=== PATIENT | male | born 1960 | race Caucasian/White ===

== ENCOUNTER 2023-03-10 10:40 | Outpatient (OUT) | payer BC, SELFPAY ==
--- NOTE | 2023-03-10 | XR_ITS ---
The [address] [address] Patient Name: RBOERT GODINEZ MRN: [id number] date: 1960 Sex: M Assigned Patient Location: RAD Current Patient Location: [facility] Accession/Order Number: [id number] Exam Date: 03/10/2023 11:02 Report Date: 03/10/2023 11:14 At the request of: BRUCE LOWE Procedure: XR chest 2V EXAM: XR chest 2V HISTORY: Cough COMPARISON: None. TECHNIQUE: PA and lateral views of the chest. FINDINGS: The cardiomediastinal silhouette is normal. No focal consolidation is identified. There is no pneumothorax. No pleural effusion is noted. The osseous structures are intact. XR/XR chest 2V IMPRESSION: No acute cardiopulmonary process. Electronically authenticated by: CHEKO REYES Date: 03/10/2023 11:14
== END 2023-03-10 10:41 | disposition home or self-care (01) ==
PROVIDERS: PCP Family Medicine; Visit Provider Family Medicine
DX: R05.8 Other specified cough (principal)
CPT/HCPCS: 71046

== ENCOUNTER 2023-09-19 01:28 | Emergency (ER) | payer BC, SELFPAY ==
[2023-09-19 01:32] VITALS: BP 147/103; PULSE 83; TEMP 36.6; O2SAT 98; BMI 27.3
[2023-09-19 01:33] VITALS: BP 141/103; O2SAT 98
[2023-09-19 01:40] VITALS: PULSE 78; O2SAT 98
--- NOTE | 2023-09-19 01:42 | ECG_ITS ---
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
[2023-09-19 01:44] VITALS: PULSE 78
--- NOTE | 2023-09-19 01:44 | ED_ITS ---
HPI - Anxiety General Chief Complaint: Arrhythmia/Palpitations Stated Complaint: RACING HEART Time Seen by Provider: 09/19/23 01:33 Source: patient Mode of arrival: walk-in Limitations: no limitations History of Present Illness HPI narrative: 63-year-old male presents for anxiety. He has been having anxiety issues over the past year. He took a Xanax this morning and then 1 tonight. He woke up and had palpitations. No fever or vomiting. Related Data Home Medications ?Medication ?Instructions ?Recorded ?Confirmed alprazolam 0.25 mg tablet 0.25 mg PO BID 09/19/23 09/19/23 atorvastatin 40 mg tablet 40 mg PO DAILY 09/19/23 09/19/23 hydrochlorothiazide 25 mg tablet 25 mg PO Q12H 09/19/23 09/19/23 losartan 25 mg tablet 25 mg PO DAILY 09/19/23 09/19/23 Previous Rx's ?Medication ?Instructions ?Recorded hydroxyzine HCl 25 mg tablet 25 mg PO Q8H PRN anxiety #20 tabs 09/19/23 Allergies Allergy/AdvReac Type Severity Reaction Status Date / Time No Known Drug Allergies Allergy Verified 09/19/23 01:31 Review of Systems ROS Narrative A ten point review of systems is negative except as noted above. Exam Narrative Exam Narrative: Nurses note and vital signs reviewed and patient is not hypoxic. General: The patient appears well and in no apparent distress. Patient is resting comfortably on cart. Skin: Warm, dry, no pallor noted. There is no rash noted. Head: Normocephalic, atraumatic Eye: Normal conjunctiva, no drainage Ears, Nose, Mouth, and Throat: oral mucosa is moist. Nares patent. Cardiovascular: Regular Rate and Rhythm, not tachycardia Respiratory: Patient is in no distress, no accessory muscle use, lungs are clear to auscultation, no wheezing, rales or rhonchi Back: non-tender GI: Soft and nontender Musculoskeletal: The patient has no evidence of calf tenderness, no pitting edema, symmetrical pulses noted bilaterally Neurological: A&O, normal speech Psychiatric: Cooperative Constitutional Vital Signs, click to edit/add: Last Vital Signs Temp 98 F 09/19/23 01:32 Pulse 83 09/19/23 01:32 Resp 18 09/19/23 01:32 BP 147/103 H 09/19/23 01:32 Pulse Ox 98 09/19/23 01:32 O2 Del Method Room Air 09/19/23 01:32 Course Vital Signs Vital signs: Vital Signs Temperature 98 F 09/19/23 01:32 Pulse Rate 83 09/19/23 01:32 Respiratory Rate 18 09/19/23 01:32 Blood Pressure 147/103 H 09/19/23 01:32 Pulse Oximetry 98 09/19/23 01:32 Oxygen Delivery Method Room Air 09/19/23 01:32 Temperature 98 F 09/19/23 01:32 Pulse Rate 83 09/19/23 01:32 Respiratory Rate 18 09/19/23 01:32 Blood Pressure 147/103 H 09/19/23 01:32 Pulse Oximetry 98 09/19/23 01:32 Oxygen Delivery Method Room Air 09/19/23 01:32 MDM - Anxiety MDM Narrative Medical decision making narrative: His workup is negative and he remains in sinus rhythm. My clinical impression is that his symptoms are due to anxiety. He is being prescribed Atarax and will follow-up promptly with his PCP. Treatment diagnosis and follow-up were discussed with the patient. Differential Diagnosis Differential diagnosis: Likely panic disorder and acute anxiety Lab Data Attestation: I reviewed the patient's lab results. Labs: Lab Results 09/19/23 Range/Units 01:49 WBC 10.5 (4.0-11.0) 10^3/uL RBC 4.80 (4.70-6.10) 10^6/uL Hgb 14.2 (14.0-18.0) g/dL Hct 43.1 (42.0-54.0) % MCV 89.8 (80.0-94.0) fL MCH 29.6 (25.9-34.0) pg MCHC 32.9 (29.9-35.2) g/dL RDW 13.5 (11.0-15.0) % Plt Count 317 (150-450) 10^3/uL MPV 9.2 L (9.5-13.5) fL Neut % (Auto) 55.1 (43.0-75.0) % Lymph % (Auto) 34.3 (20.5-60.0) % [place] % (Auto) 8.5 (1.7-12.0) % Eos % (Auto) 1.2 (0.9-7.0) % Baso % (Auto) 0.6 (0.2-2.0) % Neut # (Auto) 5.8 (1.4-6.5) 10^3/uL Lymph # (Auto) 3.6 (1.2-3.8) 10^3/uL [place] # (Auto) 0.9 H (0.3-0.8) 10^3/uL Eos # (Auto) 0.1 (0.0-0.7) 10^3/uL Baso # (Auto) 0.1 (0.0-0.1) 10^3/uL Abs Immat Gran (auto) 0.03 (0.00-0.03) 10^3/uL Imm/Tot Granulo (auto) 0.3 (0.0-0.5) % Sodium 139 (136-145) mmol/L Potassium 3.8 (3.5-5.1) mmol/L Chloride 102 (98-107) mmol/L Carbon Dioxide 26.8 (21.0-32.0) mmol/L Anion Gap 14.0 BUN 17.0 (7.0-18.0) mg/dL Creatinine 0.96 (0.70-1.30) mg/dL Est GFR ( Amer) >60 (>=60) Est GFR (Non-Af Amer) >60 (>=60) BUN/Creatinine Ratio 17.7 Glucose 97 (74-106) mg/dL Calcium 8.8 (8.5-10.1) mg/dL ECG Data Attestation: I personally reviewed and interpreted this ECG as follows: (EKG on my interpretation shows normal sinus rhythm with no acute findings and a rate of 76.) Discharge Plan Discharge Stand Alone Forms: Portal Instructions Chief Complaint: Arrhythmia/Palpitations Clinical Impression: Palpitations, Anxiety Patient Disposition: Home, Self-Care Time of Disposition Decision: 02:23 Condition: Good Mode of Transportation: Private Vehicle Prescriptions / Home Meds: New hydroxyzine HCl 25 mg tablet 25 mg PO Q8H PRN (Reason: anxiety) Qty: 20 0RF No Action alprazolam 0.25 mg tablet 0.25 mg PO BID hydrochlorothiazide 25 mg tablet 25 mg PO Q12H losartan 25 mg tablet 25 mg PO DAILY atorvastatin 40 mg tablet 40 mg PO DAILY Print Language: Singaporean Instructions: Anxiety (ED) Referrals: BRUCE LOWE [Primary Care Provider] - 1 week
[2023-09-19 01:45] VITALS: PULSE 78
[2023-09-19 01:55] LABS: Basophils Absolute Auto 0.1 10^3/uL (0.0-0.1); Basophils Percent Auto 0.6 % (0.2-2.0); Eosinophils Absolute Auto 0.1 10^3/uL (0.0-0.7); Eosinophils Percent Auto 1.2 % (0.9-7.0); Hematocrit 43.1 % (42.0-54.0); Hemoglobin 14.2 g/dL (14.0-18.0); Immature Granulocytes Abs Auto 0.03 10^3/uL (0.00-0.03); Immature Granulocytes Pct Auto 0.3 % (0.0-0.5); Lymphocytes Absolute Auto 3.6 10^3/uL (1.2-3.8); Lymphocytes Percent Auto 34.3 % (20.5-60.0); Mean Corpuscular HGB Conc 32.9 g/dL (29.9-35.2); Mean Corpuscular Hemoglobin 29.6 pg (25.9-34.0); Mean Corpuscular Volume 89.8 fL (80.0-94.0); Mean Platelet Volume 9.2 fL (9.5-13.5); Monocytes Absolute Auto 0.9 10^3/uL (0.3-0.8); Monocytes Percent Auto 8.5 % (1.7-12.0); Neutrophils Absolute Auto 5.8 10^3/uL (1.4-6.5); Neutrophils Percent Auto 55.1 % (43.0-75.0); Platelet Count 317 10^3/uL (150-450); Red Cell Distribution Width 13.5 % (11.0-15.0); White Blood Count 10.5 10^3/uL (4.0-11.0)
[2023-09-19 02:08] LABS: BUN Creatinine Ratio 17.7; Calcium 8.8 mg/dL (8.5-10.1); Carbon Dioxide 26.8 mmol/L (21.0-32.0); Chloride 102 mmol/L (98-107); Estimated GFR (African America >60 (>=60); Estimated GFR (Non-African Ame >60 (>=60); Glucose 97 mg/dL (74-106); Potassium 3.8 mmol/L (3.5-5.1); Sodium 139 mmol/L (136-145)
[2023-09-19] MEDS: HYDROXYZINE HCL 25 MG TABLET PO (02:35)
== END 2023-09-19 02:40 | disposition home or self-care (01) ==
PROVIDERS: Emergency Provider Emergency Medicine; PCP Family Medicine
DX: F41.9 Anxiety disorder, unspecified (principal); R00.2 Palpitations; Z79.899 Other long term (current) drug therapy
CPT/HCPCS: 36415; 80048; 85025; 93005; 99284